=== PATIENT | female | born 1990 | race Caucasian/White ===

== ENCOUNTER 2016-12-08 10:30 | Inpatient (IN) | payer MEDICAID ==
[~2016-12-08] VITALS: Ht 147.3 cm; Wt 58.5 kg
[2016-12-08] MEDS ORDERED: SODIUM CHLORIDE 0.9% 1,000 ML ONE ×2 (11:07→11:13)
[2016-12-08] MEDS ORDERED: ONDANSETRON 4 MG VIAL ONE (11:51)
[2016-12-08] MEDS ORDERED: DILAUDID 1 MG/ML AMP ONE (11:51)
[2016-12-08] MEDS ORDERED: ACETAMINOPHEN 325 MG TAB PO PRN (14:10)
[2016-12-08] MEDS ORDERED: PHARMACY TO DOSE IV SCH ×2 (14:10)
[2016-12-08] MEDS ORDERED: SALINE FLUSH 10 ML FLUSH PRN (14:10)
[2016-12-08] MEDS ORDERED: LACT RINGERS 1,000 ML IV ONE (14:10)
[2016-12-08] MEDS ORDERED: ED METRONIDAZOLE IV 100 ML IV ONE (15:10)
[2016-12-08 16:12] VITALS: BP_SYST 118; RESP 20; TEMP 98.9
[2016-12-08 16:13] VITALS: Ht 147.3 cm; Wt 58.5 kg
[2016-12-08] MEDS: LACT RINGERS 1,000 ML IV SCH (16:32)
[2016-12-08] MEDS: ONDANSETRON 4 MG VIAL IV PUSH PRN ×2 (16:32→20:50)
[2016-12-08 17:43] VITALS: RESP 18
[2016-12-08] MEDS: MORPHINE 2 MG/ML SYR IV PRN (18:01)
[2016-12-08] MEDS: SODIUM CHLORIDE 0.9% FLUSH BAG 500 ML IV SCH (19:33)
[2016-12-08] MEDS: SALINE FLUSH 10 ML FLUSH SCH ×2 (19:34→20:00)
[2016-12-08] MEDS: DOCUSATE SOD 100 MG CAP PO SCH (19:34)
[2016-12-08 19:47] VITALS: BP_SYST 110; RESP 18
[2016-12-08] MEDS ORDERED: LOPERAMIDE 2 MG CAPSULE PO ONE (20:25)
[2016-12-08] MEDS ORDERED: PHARMACY TO DOSE ZOSYN IV SCH (20:40)
[2016-12-08] MEDS: OXYCODONE 5 MG TAB PO PRN (20:50)
[2016-12-08] MEDS: PHENAZOPYRIDINE 100 MG TAB PO SCH (21:04)
[2016-12-08 23:28] VITALS: BP_SYST 94; RESP 18; TEMP 98.9
[2016-12-09] VITALS (13 sets, daily range): BP systolic 82–112; RESP 13–33; TEMP 97.6–98.4
[2016-12-09] MEDS: PIPERACIL/TAZO 3.375GM/50ML 50 ML IV SCH ×3 (00:34→13:11)
[2016-12-09] MEDS: LACT RINGERS 1,000 ML IV SCH ×2 (00:34→18:43)
[2016-12-09] MEDS: ONDANSETRON 4 MG VIAL IV PUSH PRN ×2 (01:47→20:30)
[2016-12-09] MEDS: SALINE FLUSH 10 ML FLUSH SCH ×2 (08:00→20:30)
[2016-12-09] MEDS: PHENAZOPYRIDINE 100 MG TAB PO SCH ×3 (08:52→20:30)
[2016-12-09] MEDS: MORPHINE 2 MG/ML SYR IV PRN (14:33)
[2016-12-09] MEDS: OXYCODONE 5 MG TAB PO PRN (17:28)
[2016-12-09] MEDS: LEVOFLOXACIN 750 MG TAB PO SCH (17:46)
[2016-12-09] MEDS: DOCUSATE SOD 100 MG CAP PO SCH (20:30)
[2016-12-09] MEDS: SODIUM CHLORIDE 0.9% FLUSH BAG 500 ML IV SCH (21:20)
[2016-12-10] MEDS: ONDANSETRON 4 MG VIAL IV PUSH PRN ×2 (01:06→12:38)
[2016-12-10 03:08] VITALS: BP_SYST 93; RESP 18; TEMP 97.9
[2016-12-10 07:11] VITALS: BP_SYST 92; RESP 16; TEMP 98
[2016-12-10] MEDS: PHENAZOPYRIDINE 100 MG TAB PO SCH (09:03)
[2016-12-10] MEDS: SALINE FLUSH 10 ML FLUSH SCH (09:03)
[2016-12-10] MEDS: LEVOFLOXACIN 750 MG TAB PO SCH (09:03)
[2016-12-10 12:08] VITALS: BP_SYST 112; RESP 18; TEMP 97.8
[2016-12-10] MEDS ORDERED: KCL CR 20 MEQ TAB PO ONE (12:20)
[2016-12-10 13:00] VITALS: BP_SYST 112; RESP 18; TEMP 97.8
== END 2016-12-10 15:47 | disposition home or self-care (01) | DRG 872 ==
LOC: ENRESERVTM → ENRESERVDT → ER 10:30 → EMR 14:18 → ENPENDDIS 14:18 → 4THE 16:02 → 4THW 16:04 → ICU 12-09 01:26 → 4NT 12-09 12:07
PROVIDERS: ADMIT Hospitalist; ATTEND Hospitalist
DX: A41.9 Sepsis, unspecified organism (principal); K62.5 Hemorrhage of anus and rectum; K52.9 Noninfective gastroenteritis and colitis, unspecified; E28.2 Polycystic ovarian syndrome; E86.0 Dehydration
CPT/HCPCS: 36415; 71010; 74176; 80048; 80053; 81001; 82274; 82947; 83605; 83690; 84145; 84703; 85014; 85018; 85025; 87040; 87045; 87046; 87077; 87088; 87493; 87804; 94799; 96361; 96365; 96375; 99223; 99233